=== PATIENT | female | born 1970 | race Hispanic/Latino ===

== ENCOUNTER 2017-07-19 15:26 | Outpatient (CLI) | payer BC ==
--- NOTE | 2017-07-22 12:58 | Mammography Report ---
BILATERAL DIGITAL DIAGNOSTIC MAMMOGRAM with CAD: 07/19/17 15:26:00 CLINICAL: History of bilateral benign biopsies. Bilateral breast lumps. However, the patient denies feeling a lump. COMPARISON:10/01/09 and 08/28/08 FINDINGS: The breasts are heterogeneously dense, which may obscure small masses.No mass, architectural distortion or suspicious calcifications. IMPRESSION: No mammographic evidence of malignancy.However, workup is incomplete without a lateral ultrasound. BI-RADS CATEGORY: 0--Needs Additional Imaging RECOMMENDATION: Return for bilateral breast ultrasound. ACR BI-RADS MAMMOGRAPHIC CODES: 0 = Needs additional imaging evaluation; 1 = Negative; 2 = Benign; 3 = Probably benign; 4 = Suspicious; 5 = Malignant; 6 = Known biopsy-proven malignancy COMMENT: 1. Dense breast tissue, i.e., adenosis, fibrocystic changes, etc., may obscure an underlying neoplasm. 2. Approximately 10% of cancers are not detected with mammography. 3. A negative mammography report should not delay biopsy if a clinically suspicious mass is present. COMMENT: Patient follow-up letters are generated by our [employer] application.
== END 2017-07-19 15:27 | disposition home or self-care (01) ==
LOC: SPVWC 15:26
PROVIDERS: ATTEND Obstetrics & Gynecology
DX: N63.10 Unspecified lump in the right breast, unspecified quadrant (principal); N63.20 Unspecified lump in the left breast, unspecified quadrant
CPT/HCPCS: 77066; G0204

== ENCOUNTER 2017-08-01 08:43 | Outpatient (CLI) | payer BC ==
--- NOTE | 2017-08-01 09:46 | Ultrasound Report ---
Bilateral breast ultrasound: Patient with history of her physician feeling some palpable findings. Recent mammogram showed no significant changes. In the right breast at 6:30 location 2 cm from the nipple there is a circumscribed and elongated hypoechoic nodule measuring 3 x 6 mm. Circumscribed echolucent 5 mm mass noted at 12:00. 2 benign-appearing lymph nodes present in the right axilla. In the left breast a circumscribed echolucent mass is noted at 2:00 measuring 8.4 mm. 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 Recommendation: Repeat ultrasound of the right breast in 6 months to confirm stability of this finding. The findings and recommendations have been discussed with the patient. BI-RADS CATEGORY: 3 = Probably benign ACR BI-RADS MAMMOGRAPHIC CODES: 0 = Needs additional imaging evaluation; 1 = Negative; 2 = Benign; 3 = Probably benign; 4 = Suspicious; 5 = Malignant; 6 = Known biopsy-proven malignancy COMMENT: 1. Dense breast tissue, i.e., adenosis, fibrocystic changes, etc., may obscure an underlying neoplasm. 2. Approximately 10% of cancers are not detected with mammography. 3. A negative mammography report should not delay biopsy if a clinically suspicious mass is present.
== END 2017-08-01 08:44 | disposition home or self-care (01) ==
LOC: SPVWC 08:43
PROVIDERS: ATTEND Obstetrics & Gynecology
DX: N60.11 Diffuse cystic mastopathy of right breast (principal); N60.12 Diffuse cystic mastopathy of left breast; N63.10 Unspecified lump in the right breast, unspecified quadrant